=== PATIENT | female | born 1960 | race African-American/Black ===

== ENCOUNTER → 2021-05-29 | Outpatient (CLI) | payer BC ==
[~2021-05-29] MED LIST: ASCO-151 PO; CHOL10004 PO; IOHEXOL 180 MG/ML 10 ML VIAL. ONE; LOSA1TAB19 PO; [UNRECOGNIZED DRUG - CODE] TP; methylPREDNISolone ACETATE 40 MG/ML VIAL. ONE; methylPREDNISolone ACETATE 80 MG/ML VIAL. ONE
--- NOTE | 2021-05-29 11:05 | PDOC1 ---
INITIAL PAIN CONSULT DATE OF SERVICE: DOS: DATE: 05/29/21 TIME: 10:56 CHIEF COMPLAINT: Chief Complaint: Low back and left lower extremity pain HISTORY OF PRESENT ILLNESS: 60-year-old female presents history of pain low back and left lower extremity for about 3 to 4 months not the result of any specific injury or accident that she is aware but increasing with time and getting worse with activity. Patient reports it is constant radiating the low back and left lower extremity posterior gluteus lateral thigh anterior thigh medial thigh on the left side. Patient reports is worse with standing walking changing positions better with sitting or laying down, but wakes her from sleep least 1-3 times a night patient reports that it does not affect her bowel bladder control or ability to walk has been getting through with the pain and simply putting up with it. Patient rates her disability rating 0-10 10 being worst is a 5 with family home as possibilities and occupation for with recreation 0 social activity 3 with sexual behavior 5 with life support activities especially sleeping. Patient has tried chiropractic treatment which did not help significantly she is doing some exercise on her own again not significantly decreasing the pain. Patient had MRI scan of the lumbar spine showing L4-5 mild degenerative disc disease with loss of disc signal asymmetric right bulging disc material moderate severe facet arthropathy including joint effusions right result in mild inferior right neural foraminal narrowing L5-S1 shows degenerative disease with mild loss of disc space and bulging disc material mild/moderate facet arthropathy without central stenosis. L3-4 shows minimal asymmetric lateral bulging disc material and mild facet arthropathy. Patient reports a loss of motor function with significant fatigability of the left lower extremity with walking and standing. PAST MEDICAL HISTORY: PMH: Hypertension, dizziness PREVIOUS SURGERIES: Past Surgical Hx: x2, tonsillectomy, benign lumpectomy CURRENT MEDICATIONS: Current Meds: Active Scripts Medications Dose Route/Sig Max Daily Dose Days Date Category Dose Instructions Emergen-C 1,000 mg Packet (Ascorbic Acid/Multivit-Min) 1,000 Mg Effpowdpkt 1,000 Mg PO QODAY 05/29/21 Reported Dave Clear Ointment (Cod Liver/Vit A&D/Petrolat,Wht) 142 Gm Oint...g. 142 Gm TP DAILY 05/29/21 Reported Vitamin D3 (Vitamin D) 25 Mcg Tablet 25 Mcg PO DAILY 05/29/21 Reported 1,000 UNITS = 25 MCG Losartan-Hctz 50-12.5 Mg Tab (Losartan/Hydrochlorothiazide) 1 Each Tablet 1 Tab PO DAILY 05/29/21 Reported ALLERGIES; Allergies: Coded Allergies: latex (Verified Allergy, Intermediate, Rash, 05/29/21) FAMILY HISTORY: Family Hx: Pancreatic cancer, glaucoma, diabetes, hypertension SOCIAL HISTORY: Social Hx: Patient does not dorene alcohol does not smoke says any illegal illicit recreational lives with her spouse lives locally in [facility] REVIEW OF SYSTEMS: ROS: Positive for those items mentioned in history of present illness, all systems are reviewed, otherwise negative ,and are complete full and well-documented on patient's chart. PHYSICAL EXAM: VS: Blood pressure is over 88 pulse 76 respirations 18 temperature 98.1 F height 5 feet 3 inches weight is 156 pounds PE: PHYSICAL EXAMINATION: GENERAL: The patient is awake, alert, oriented, appropriate, very pleasant in demeanor, patient accompanied by her . HEENT: Shows normocephalic, atraumatic. Extraocular movements are intact and symmetrical. Oral cavity: Mucous membranes moist and pink. Dentition is intact. NECK: Shows anterior throat supple without palpable lymphadenopathy noted. Swallow reflex symmetrical. CHEST: Shows normal on inspection. Breath sounds are clear bilaterally, no rales rhonchi or wheezes auscultated. HEART: Shows S1, S2 clear. No murmurs auscultated. ABDOMEN: Soft, nontender, nondistended. No palpable organomegaly is noted. No rebound or guarding demonstrated. BACK: Shows spine grossly in the midline. Normal-appearing cervical lordotic curvature. There is slightly increased thoracic kyphosis, some flattening of the lumbar lordotic curvature. Lumbar paraspinous muscles show symmetrical on inspection, on palpation shows some moderate tenderness diffusely throughout the upper, middle and lower distribution of the paraspinous muscles bilaterally and also into the lower thoracic paraspinous musculature, firm and tender, but without specific trigger points, without radiation of pain. The patient has good rotational motion of the lumbar spine, both laterally as well as extension and flexion without significant difficulty. No tenderness over the spinous processes, sacrum or sacroiliac regions. EXTREMITIES: Lower extremities show deep tendon reflexes 2+ in the patellar and tendo calcaneus tendons. Motor exam is 5 on a scale of 5 with right dorsiflexion, extension, quadriceps and hamstring flexion and 4/5 on the left. Peripheral pulses are 1 posterior tibial. No peripheral edema is noted bilaterally. Lower extremities are warm and dry to touch, equal in color and appearance. Straight leg raise noted to be positive on the left at about 45 degrees decreased with knee flexion, right side is negative. Gaenslen's and Richard's maneuvers are negative bilaterally. The patient is able to stand, stand on her toes that significant difficulty or loss of balance, walks with a normal-appearing gait does not appear to favor the right or left lower extremity significantly is not use any assistive devices to ambulate. SKIN: Shows warm and dry, good turgor. No edema. No sores, rashes or bruising throughout. IMPRESSION: Impression: 60-year-old female with 3 to 4-month history increasing pain low back left lower extremity radicular fashion MRI scan lumbar spine as noted Hypertension Plan: Options were discussed with the patient patient spouse who accompanied her visit today. We discussed physical therapies interventional techniques and medication management. Patient like to pursue interventional techniques, we discussed a lumbar epidural steroid injection using description as well as anatomical models to describe the procedure. Risks were discussed including but not limited to: Bleeding, infection, possibility of epidural hematoma and subsequent neurological compromise, dural puncture, headaches, spinal cord and/or nerve damage, side effects of steroid medication, and poor results regarding pain control. Patient understands and wished to proceed. Patient return to the clinic in approximate 2 weeks for follow-up, was counseled as return appointment activity level and side effects to be aware of. Procedure is lumbar epidural steroid injection under local anesthetic using sterile prep and drape at the L4-5 level using C-arm fluoroscopic guidance in both AP and lateral views medications injected is 120 mg Depo-Medrol +10mL preservative-free normal saline and 2 mL contrast- condition at discharge is stable patient tolerated procedure well had no complications. MACK SWENSON MD May 29, 2021 11:05
== END | disposition home or self-care (01) ==
LOC: PNCL 08:21
PROVIDERS: ATTEND Anesthesiology
DX: M54.16 Radiculopathy, lumbar region (principal); M54.5 Low back pain; M79.605 Pain in left leg; I10 Essential (primary) hypertension; Z79.899 Other long term (current) drug therapy; Z91.040 Latex allergy status
CPT/HCPCS: 62323; J1030; J1040; Q9965

== ENCOUNTER → 2021-07-03 | Outpatient (CLI) | payer BC ==
[~2021-07-03] MED LIST changes: -methylPREDNISolone ACETATE 40 MG/ML VIAL. ONE
--- NOTE | 2021-07-03 10:27 | PDOC ---
Progress Note - Pain Clinic Date of Service: DOS: DATE: 07/03/21 TIME: 10:25 Diagnosis: Dx: Lumbar radiculopathy with lumbar degenerative disc disease History or Present Illness: HPI: 60-year-old female returns for follow-up status post lumbar epidural steroid injection x1. Patient reports about 50% improvement in the back and left lower extremity patient reports that she been increasing activity greater ease and comfort been sleeping better doing "power walking" with much greater ease and comfort travel with greater ease doing work activities and driving patient reports sleeping better at night generally not awaken her from sleep at night patient reports the pain is on and off aching and dull in the low back described as left lower extremity posterior gluteus lateral thigh anterior thigh medial thigh medial lower leg as well. Patient reports a 6 on scale 10 is worse over the past week 5 on average 5 its least and is a 5 today. Patient reports no bowel or bladder incontinence no motor or sensory deficits. Physical Exam: VS: Blood pressure is 141/90 pulse 73 respirations 20 temperature is 98.1 F weight is 154 pounds PE: PHYSICAL EXAMINATION: GENERAL: The patient is awake, alert, oriented, appropriate, very pleasant in demeanor HEENT: Shows normocephalic, atraumatic. Extraocular movements are intact and symmetrical. Oral cavity: Mucous membranes moist and pink. NECK: Shows anterior throat supple without palpable lymphadenopathy noted. Swallow reflex symmetrical. CHEST: Shows normal on inspection. Breath sounds are clear bilaterally, no rales or rhonchi. HEART: Shows S1, S2 clear. No murmurs auscultated. ABDOMEN: Soft, nontender, nondistended, obese. No palpable organomegaly is noted. BACK: Shows spine grossly in the midline. Normal-appearing cervical lordotic curvature. There is slightly increased thoracic kyphosis, some minor flattening of the lumbar lordotic curvature. Lumbar paraspinous muscles show symmetrical on inspection, on palpation shows some moderate tenderness diffusely throughout the upper, middle and lower distribution of the paraspinous muscles, but without specific trigger points, without radiation of pain. The patient has good rotational motion of the lumbar spine, both laterally as well as extension and flexion without significant difficulty. EXTREMITIES: Lower extremities show deep tendon reflexes 2+ in the patellar and tendo calcaneus tendons. Motor exam is 5 on a scale of 5 with right dorsiflexion, extension, quadriceps and hamstring flexion and 4/5 on the left. Peripheral pulses are 1 posterior tibial. No peripheral edema is noted bilaterally. Lower extremities are warm and dry to touch, equal in color and appearance. SKIN: Shows warm and dry, good turgor. No edema. No sores, rashes or bruising throughout. Procedure: Procedure: Options discussed with patient. Patient's old chart was reviewed as her current medication regimen updated current review of systems updated today as well. We will proceed with a second in the series lumbar epidural steroid injection stable fluoroscopic guidance. Risks were discussed including but not limited to: Bleeding, infection, possibility of epidural hematoma and subsequent neurological compromise, dural puncture, headaches, spinal cord and/or nerve damage, side effects of steroid medication, and poor results regarding pain control. Patient understands and wished to proceed. Patient return to clinic in approximate 2 weeks for follow-up, was counseled as return appointment to fill and side effects to be aware of. Medication Injected: Med Injected: Procedure is lumbar epidural steroid injection under local anesthetic using sterile prep and drape at the L4-5 level using C-arm fluoroscopic guidance in both AP and lateral views medications injected is 120 mg Depo-Medrol +10mL preservative-free normal saline and 2 mL contrast- condition at discharge is stable patient tolerated procedure well had no complications. Condition at Discharge: Condition at Discharge: Condition at discharge stable, patient already procedure well had no compl ications. MACK SWENSON MD Jul 03, 2021 10:27
--- NOTE | 2021-07-03 10:28 | PDOC4 ---
Procedure Note: ICD 10 Code: ICD 10 Code: M54.16 M51.36 Procedure Note: Patient was consented for lumbar epidural steroid injection with fluoroscopic guidance. Risks were discussed including but not limited to: Bleeding, infection, possibility of epidural hematoma and subsequent neurological compromise, dural puncture, headaches, spinal cord and/or nerve damage, side effects of steroid medication, and poor results regarding pain control. Patient understands and wished to proceed. Procedure is lumbar epidural steroid injection under local anesthetic using sterile prep and drape at the L4-5 level using C-arm fluoroscopic guidance in both AP and lateral views medications injected is 120 mg Depo-Medrol +10mL preservative-free normal saline and 2 mL contrast- condition at discharge is stable patient tolerated procedure well had no complications. MACK SWENSON MD Jul 03, 2021 10:28
== END | disposition home or self-care (01) ==
LOC: PNCL 09:34
PROVIDERS: ATTEND Anesthesiology
DX: M54.16 Radiculopathy, lumbar region (principal); M51.16 Intervertebral disc disorders with radiculopathy, lumbar region; M51.36 Other intervertebral disc degeneration, lumbar region; Z79.899 Other long term (current) drug therapy; Z91.040 Latex allergy status
CPT/HCPCS: 62323; J1040; Q9965

== ENCOUNTER 2021-09-04 10:27 | Day surgery (SDC) | payer BC ==
[~2021-09-04] VITALS: Ht 160 cm; Wt 70.0 kg
[~2021-09-04 10:27] MED LIST changes: +HYDROmorphone 2 MG/ML VIAL IVP PRN; -IOHEXOL 180 MG/ML 10 ML VIAL. ONE; +IV RINGERS,LACTATED 1000ML 1,000 ML IV SCH; +MORPHINE SULFATE 2 MG/ML INJ. IVP PRN; +PROCHLORPERAZINE 10 MG/2 ML VIAL. IVP PRN; +ceFAZolin SODIUM IV Push 1 GM VIAL. IVP PRN; +fentaNYL PF VIAL 100 MCG/2 ML VIAL IVP PRN; -methylPREDNISolone ACETATE 80 MG/ML VIAL. ONE
[2021-09-04 10:51] VITALS: BP 184/81
[2021-09-04] MEDS ORDERED: DEXAMETHASONE SOD PHOS 4 MG/ML VIAL ONE (11:42)
[2021-09-04] MEDS ORDERED: LIDOCAINE 1% PF 5 ML VIAL. ONE (11:42)
[2021-09-04] MEDS ORDERED: NEOSTIGMINE 10 MG/10 ML VIAL. ONE ×2 (11:42→13:09)
[2021-09-04] MEDS ORDERED: ONDANSETRON PF 4 MG/2 ML VIAL. ONE (11:42)
[2021-09-04] MEDS ORDERED: PROPOFOL 10 MG/ML (20ML) VIAL. IV ONE (11:42)
[2021-09-04] MEDS ORDERED: GLYCOPYRROLATE 1 MG/5 ML VIAL. ONE (11:43)
[2021-09-04] MEDS ORDERED: fentaNYL PF VIAL 100 MCG/2 ML VIAL ONE ×2 (11:43→15:06)
[2021-09-04] MEDS ORDERED: MIDAZOLAM HCL/PF 2 MG/2 ML VIAL. ONE (11:43)
[2021-09-04] MEDS ORDERED: ROCURONIUM 50 MG/5 ML VIAL. ONE (11:44)
[2021-09-04] MEDS ORDERED: KETOROLAC 30 MG/ML VIAL. ONE (13:11)
--- NOTE | 2021-09-04 14:49 | PDOC4 ---
Operative Note Operative Note Operative Note: Preoperative Diagnosis: Ventral hernia Postoperative Diagnosis: Same Procedure: Ventral hernia repair Surgeon: Bennie Hair Rooting Machine Operator: Navjot Vasques MS Anesthesia: General EBL: 10 mL Specimen: None Drains: None Complications: None Indication: The patient is a 60-year-old female who is referred with a ventral hernia located inferior to the umbilicus. She is interested in operative repair. The risks of surgery were discussed which include bleeding, infection, recurrence, pain, anesthetic risk, potential need for additional surgery procedure. She understands and would like to proceed. Description: The patient was taken to the operating room and placed supine on th e operating table. General anesthesia was performed. The abdomen was prepped with ChloraPrep and draped with sterile towels, sheets, and an Ioban. A vertical incision was made overlying the hernia which was inferior to the umbilicus near the midline. Cautery dissection was carried down to the subcutaneous tissues. The hernia defect was readily identified with a somewhat fibrotic hernia sac. Some of the sac was excised to better expose the defect which turned out to be very small. We initially plan on placement of a small mesh patch however it would have required enlarging the hernia defect. For this reason we elected for a primary repair of the small hernia defect. This was closed primarily with interrupted 0 Prolene sutures. The deep subcutaneous tissue was closed with 0 Vicryl. The superficial subcutaneous tissue was approximated with 3-0 Vicryl. Skin was closed with 4-0 Monocryl and Steri- Strips and a sterile dressing were applied. The patient tolerated the procedure well and was sent to the recovery room in stable condition. At the end the case all counts were correct. KIP STEEL MD Sep 04, 2021 14:49
[2021-09-04] MEDS ORDERED: OXYC-325 PO (14:52)
--- NOTE | 2021-09-04 15:00 | DISCH ---
DISCHARGE INSTRUCTIONS Condition on Discharge Condition on Discharge: Stable Activity After Discharge Activity Instructions for Disc: Other, see below (no lifting over 20 lbs or strenuous activity X 6 weeks; keep abdominal binder on while out of bed for 6 weeks) Driving Instructions after Dis: Other, see below (no driving while taking pain meds) Diet after Discharge Diet after Discharge: Regular Wound Incision Care Wound/Incision Care: Other, see below (keep dressing clean and dry X 72 hours, may then remove and shower) Follow-Up Follow up with: Dr Steel in office, call for appointment [phone] KIP STEEL MD Sep 04, 2021 15:00
[2021-09-04] MEDS: fentaNYL PF VIAL 100 MCG/2 ML VIAL IVP PRN ×2 (15:11→15:38)
[2021-09-04] MEDS ORDERED: oxyCODONE/APAP 5/325 1 TAB TABLET PO ONE (15:45)
[2021-09-04 16:25] VITALS: BP 125/65
== END 2021-09-04 16:55 | disposition home or self-care (01) ==
LOC: SURG 10:27
PROVIDERS: ATTEND Surgery
DX: K43.9 Ventral hernia without obstruction or gangrene (principal); I10 Essential (primary) hypertension; Z79.899 Other long term (current) drug therapy; Z98.890 Other specified postprocedural states; Z91.040 Latex allergy status
CPT/HCPCS: 49560; J0690; J1100; J1885; J2250; J2405; J2704; J2710; J3010; J3490; A4364; A4452; A4930; A6402